=== PATIENT | male | born 1935 | race Caucasian/White ===

== ENCOUNTER 2020-06-29 11:11 | Emergency (ER) | payer MEDICARE ==
[2020-06-29 12:28] LABS: #Monocytes 1.2 10x3/uL (0.0-1.1); #Neutrophils 9.4 10x3/uL (1.5-8.4); %Basophils 0.3 % (0.0-2.0); %Eosinophils 0.2 % (0.0-6.0); %Lymphocytes 11.2 % (18.0-47.0); %Monocytes 9.6 % (0.0-10.0); %Neutrophils 78.3 % (40.0-75.0); Hemoglobin 14.1 g/dL (13.5-17.5); Mean Corpuscular HGB CONC 32.1 g/dL (32.0-36.0); Mean Corpuscular Hemoglobin 29.5 pg (27.0-33.0); Mean Corpuscular Volume 91.8 fl (81.2-95.1); Mean Platelet Volume 11.6 fl (7.4-10.4); Platelet Count 174 10x3/uL (150-450); RBC Distribution Width 15.2 % (11.5-14.5); Red Blood Cell (RBC) Count 4.78 10x6/uL (4.32-5.72)
[2020-06-29 12:37] LABS: ALT (SGPT) 22 U/L (8-55); AST (SGOT) 28 U/L (5-34); Albumin 3.8 g/dL (3.4-4.8); Alkaline Phosphatase 54 U/L (40-110); Anion Gap 10 mmol/L (10-20); BUN (Urea Nitrogen) 22 mg/dL (8.4-25.7); Bilirubin, Total 0.6 mg/dL (0.2-1.2); Calc. Creatinine Clearance 0 mL/min (70-130); Calcium 8.8 mg/dL (7.8-10.44); Carbon Dioxide 27 mmol/L (23-31); Chloride 103 mmol/L (98-107); Globulin 3.1 g/dL (2.4-3.5); Glucose 122 mg/dL (83-110); Potassium 4.2 mmol/L (3.5-5.1); Protein, Total 6.9 g/dL (5.8-8.1); Sodium 136 mmol/L (136-145)
[2020-06-29 13:26] LABS: Bilirubin Neg (Negative); Blood, Urine Negative (Negative); Clarity Clear (Clear); Glucose, Urine (Dipstick) Normal (Negative); Ketone, Urine 15 mg/dL (Negative); Leukocyte 100 (Negative); Nitrite Negative (Negative); Protein, Urine (Dipstick) 30 mg/dl (Neg-Trace); Specific Gravity, Urine 1.025 (1.002-1.036); Urobilinogen Normal mg/dL (Less than 2)
[2020-06-29 13:59] LABS: RBC/HPF 0-3 HPF (0-3)
[2020-06-29 14:02] LABS: Bacteria/HPF Rare-Few HPF (None Seen)
[2020-06-29] MEDS ORDERED: Ondansetron PF 4 MG/2 ML Vial ONE ×2 (14:56→16:34)
[2020-06-29] MEDS ORDERED: Morphine 4 MG/ML VIAL ONE (14:56)
== END 2020-06-29 16:40 | disposition home or self-care (01) ==
LOC: CSHERS 11:11
DX: N13.2 Hydronephrosis with renal and ureteral calculous obstruction (principal); I25.2 Old myocardial infarction; E78.5 Hyperlipidemia, unspecified; E78.00 Pure hypercholesterolemia, unspecified; I10 Essential (primary) hypertension; Z79.82 Long term (current) use of aspirin; Z79.899 Other long term (current) drug therapy
CPT/HCPCS: 36415; 74177; 80053; 81003; 81015; 85025; 96374; 96375; 96376; J2270; J2405